=== PATIENT | female | born 1955 | race Caucasian/White ===

== ENCOUNTER 2025-02-01 09:45 | Outpatient (RCR) | payer MEDICARE, OTHER, SELFPAY ==
--- NOTE | 2024-11-05 17:28 | PT.OIE ---
Current Diagnoses Lymphedema, not elsewhere classified (11/05/24) Soft tissue disorder, unspecified (11/05/24) Visit Care Team Role Provider Type Ashkan Wasserman Attending Provider Non-Staff Family Provider Primary Care Provider Referring Provider Specialty: Internal Medicine Address[facility] [place], [address] Email: Physical Therapy Initial Evaluation PT-OP-A Visit Information Start: 11/05/24 09:03 Freq: Status: Active Protocol: Document 11/05/24 09:04 SAK (Rec: 11/05/24 09:43 SAK Laptop) Out-Patient Physical Therapy Visit Information Visit Information Visit Type Initial Evaluation Visit Start Time 09:06 Visit Stop Time 10:30 Visit Number 1 Evaluation Information Evaluation Date 11/05/24 Precautions Precautions diagnosis bursitis right shoulder PT-OP-B Current Condition Start: 11/05/24 09:03 Freq: Status: Active Protocol: Document 11/05/24 09:04 SAK (Rec: 11/05/24 09:43 SAK Laptop) Current Condition History of Current Condition Onset Date 24 yrs Current Complaints lymphedema right UE History of Current Has managed lymphedema (mild) for 25 years, but over Condition past few months bursitis right shoulder and worsening lymphedema with increased heaviness and aching. Wears custom class II compression sleeve and gauntlet from place in [place]; used to only wear with airpline flight. Exacerbation with flying, and heat. More recently wearing most days; helps with ache. Wants evaluation to see PT can help with any further lymphedema treatment. Does not have a pump. Excercises but not specific for lymphedema. right shoulder rehab due to bursitis s/p saw orthopedist and was given exercises, states bursitis improving slowly. Partial mastectomy 1998, lymphedema showed up 1 year later. Prior Treatments and Custom gauntlet and arm sleeve for right UE lymphedema Tests Has not tried pneumatic pump Treatment Goals Patient/Caregiver Decrease lymphedema, be able to self manage Goals Current Functional Impairments (Reported) Functional heavy and achy arm Limitations- ADL's Functional heavy and achyarm Limitations- Recreation/Hobbies PT-OP-C Subjective Start: 11/05/24 09:03 Freq: Status: Active Protocol: Document 11/05/24 09:04 SAK (Rec: 11/05/24 17:25 SAK Laptop) Patient Questionnaires Lymphedema Life Impact Score Lymphedema Score 17 OP-PT Pain Assessment Pain Assessment Grid Paper Pain Yes Assessment Grid Completed Location right shoulder Pain Location forearm and shoulder Details Intensity 3 PT-OP-F Manual Assessment Start: 11/05/24 09:03 Freq: Status: Active Protocol: Document 11/05/24 09:04 SAK (Rec: 11/05/24 17:25 SAK Laptop) Manual Assessments Soft Tissue Assessment Soft Tissue Mobility mild fibrosis and hyperkeratosis forearm, mod in Assessment subaxillary region PT-OP-J Posture/Palpation/Skin Start: 11/05/24 09:03 Freq: Status: Active Protocol: Document 11/05/24 09:04 SAK (Rec: 11/05/24 17:25 SAK Laptop) Palpation Assessment Location right subaxillary Palpation Findings Edema,Soft Tissue Tightness Palpation Details no subaxillary cording Skin Assessment Edema Assessment right UE Edema Type Non-Pitting Edema Appearance Puffy Subjective Edema Tightness Description Incisional Assessment Incision Appearance/ well healed, poor mobility Comments PT-OP-K Range of Motion Start: 11/05/24 09:03 Freq: Status: Active Protocol: Document 11/05/24 09:04 SAK (Rec: 11/05/24 17:25 SAK Laptop) Shoulder Goniometric Range of Motion Shoulder right Shoulder ROM WFL No Shoulder ROM Limitations Shoulder ROM Soft Tissue Tightness,Swelling Limitations PT-OP-N Lymphedema Start: 11/05/24 09:03 Freq: Status: Active Protocol: Document 11/05/24 09:04 SAK (Rec: 11/05/24 09:43 SAK Laptop) Lymphedema Measurements Upper Extremity Circumference Measurements Right Affected MCP 18.7 cm Dorsum of Hand 19.8 cm Wrist 17 cm 5 cm From Wrist 20.8 cm Crease 10 cm From Wrist 23.8 cm Crease 15 cm From Wrist 25.1 cm Crease 20 cm From Wrist 25.3 cm Crease 25 cm From Wrist 25.7 cm Crease 30 cm From Wrist 27.7 cm Crease 35 cm From Wrist 29.5 cm Crease 40 cm From Wrist 31.4 cm Crease Left Unaffected MCP 18.7 cm Dorsum of Hand 19.5 cm Wrist 16.4 cm 5 cm From Wrist 17.6 cm Crease 10 cm From Wrist 20.3 cm Crease 15 cm From Wrist 22.9 cm Crease 20 cm From Wrist 24.9 cm Crease 25 cm From Wrist 25.7 cm Crease 30 cm From Wrist 28.4 cm Crease 35 cm From Wrist 29.9 cm Crease 40 cm From Wrist 29.2 cm Crease Elbow Joint 22.9 cm PT-OP-Q Treatments Start: 11/05/24 09:03 Freq: Status: Active Protocol: Document 11/05/24 09:04 [facility] (Rec: 11/05/24 17:25 SAK Laptop) Lymphedema Treatment Manual Lymphatic Drainage Location for right UE lymphedema Lymphedema Wrapping Body Location right UE Materials patient compression sleeve and gauntlet Sequential Lymphedema Exercises Comments instructed in open book and sidelying shoulder [place] Compression Garment Assessment Compression Garment good fit and containment, different fabric may be more Assessment Details beneficial, will consider Patient Education Lymphedema Pathology instructed Lymphedema instructed Prevention Lymphedema instructed Precautions Compression Garments evaluated patient garment, will discuss further Self Manual instructed and given online resource Lymphatic Drainage Sequential as above Lymphedema Exercises PT-OP-T Assessment and Plan Start: 11/05/24 09:03 Freq: Status: Active Protocol: Document 11/05/24 09:04 SAK (Rec: 11/05/24 09:43 [facility] Laptop) Physical Therapy Assessment Rehab Potential Rehabilitation Good Potential Evaluation Complexity Number of Personal 1-2 Factors/ Comorbidities Number of Body 3 Systems Impaired Clinical Evolving Presentation at Evaluation Impairments Impairments Edema,Soft Tissue Mobility Goals Three Impairment impaired soft tissue mobility subaxillary On Site Services Specialist Goal (LTG) Improve soft tissue mobility of scar and all subaxillary tissue to improve lymphatic flow LTG Duration 02/05/25 Two Impairment lymphedema life impact scale 17% Shelter Goal (LTG) Decrease lymphedema life impact scale to no greater than 5% as measure of improved activity tolerance and quality of life LTG Duration 02/05/25 One Impairment lymphedema exacerbation right UE Short Term Goal (STG Patient will be instructed in all aspects of lymphedema ) self-care to include skin care, elevation, self- massage, self-bandaging/compression options, and lymphedema exercises. STG Duration 12/07/24 On Site Services Specialist Goal (LTG) Decrease patient?s lymphedema to a stable level (no increase or decrease greater than 1 cm over the course of 1 week), patient to be independent with all aspects of self-care for lymphedema, and will obtain appropriate compression garment for lymphedema management in the home. LTG Duration 02/05/25 Assessment Summary Assessment Patient presents to PT with function-limiting exacerbation of lymphedema right UE with increased heaviness and achiness. She has had lymphedema for 24 years, has a custom Class II compression sleeve and gauntlet for right UE with good fit, different fabric may be beneficial so may need to problem-solve compression needs. She is concerned with this exacerbation and hoping PT can help to improve her symptoms and function. Do not have prior measurements from different clinic for comparison of circumferential measurements but right UE has observable lymphedema right with mild fibrosis and hyperkeratosis, no increased warmth or redness, no open wounds. She has significant tightness and edema in her subaxillary region both scar tissue and muscular tissue. Initiated treatment with MLD including patient instruction technique, instruction in ther ex for flexibility upper trunk and subaxillary region. Recommend a sequential pneumatic pump with trunk component may be a good adjunct to her self care in the home. Feel she would benefit highly from PT to address her lymphedema and help her achieve her above goals. POC was discussed with patient and she was in agreement. Physical Therapy Plan Frequency and Duration Frequency of 20 Treatment Plan of Care Start 11/05/24 Date Plan of Care End 02/05/25 Date Therapeutic Interventions Therapeutic Home Exercise Program,Lymphedema Management,Manual Interventions Therapy,Patient/Caregiver Education,Self-Care/Home Management,Soft Tissue Mobilization,Therapeutic Activities,Therapeutic Exercises Modalities Vasopneumatic Devices Next Visit Focus/Plan Next Note Type Treatment Note Next Visit Plan Continue complete decongestive therapy (CDT).
--- NOTE | 2024-11-10 14:30 | PT.OTN ---
Current Diagnoses Lymphedema, not elsewhere classified (11/10/24) Soft tissue disorder, unspecified (11/10/24) Physical Therapy Treatment Note PT-OP-A Visit Information Start: 11/05/24 09:03 Freq: Status: Active Protocol: Document 11/10/24 13:06 SAK (Rec: 11/10/24 13:24 SAK Laptop) Out-Patient Physical Therapy Visit Information Visit Information Visit Type Treatment Note Visit Start Time 13:01 Visit Stop Time 14:26 Visit Number 2 Evaluation Information Evaluation Date 11/05/24 Precautions Precautions diagnosis bursitis right shoulder PT-OP-B Current Condition Start: 11/05/24 09:03 Freq: Status: Active Protocol: Document 11/10/24 13:06 SAK (Rec: 11/10/24 13:24 SAK Laptop) Current Condition History of Current Condition Onset Date 24 yrs Current Complaints lymphedema right UE History of Current Has managed lymphedema (mild) for 25 years, but over Condition past few months bursitis right shoulder and worsening lymphedema with increased heaviness and aching. Wears custom class II compression sleeve and gauntlet from place in [place]; used to only wear with airpline flight. Exacerbation with flying, and heat. More recently wearing most days; helps with ache. Wants evaluation to see PT can help with any further lymphedema treatment. Does not have a pump. Excercises but not specific for lymphedema. right shoulder rehab due to bursitis s/p saw orthopedist and was given exercises, states bursitis improving slowly. Partial mastectomy 1998, lymphedema showed up 1 year later. Prior Treatments and Custom gauntlet and arm sleeve for right UE lymphedema Tests Has not tried pneumatic pump PT-OP-C Subjective Start: 11/05/24 09:03 Freq: Status: Active Protocol: Document 11/10/24 13:06 SAK (Rec: 11/10/24 13:24 SAK Laptop) OP-PT Subjective Patient Comments Patient Comments Doing HEP but reports has to be careful due to shoulder bursitis. Went on a hike before todays appt an is having a good day. Has been doing HEP. OP-PT Pain Assessment Pain Assessment Grid Paper Pain Yes Assessment Grid Completed Location right shoulder Pain Location forearm and shoulder Details Intensity 3 PT-OP-F Manual Assessment Start: 11/05/24 09:03 Freq: Status: Active Protocol: Document 11/05/24 09:04 SAK (Rec: 11/05/24 17:25 SAK Laptop) Manual Assessments Soft Tissue Assessment Soft Tissue Mobility mild fibrosis and hyperkeratosis forearm, mod in Assessment subaxillary region PT-OP-J Posture/Palpation/Skin Start: 11/05/24 09:03 Freq: Status: Active Protocol: Document 11/05/24 09:04 SAK (Rec: 11/05/24 17:25 SAK Laptop) Palpation Assessment Location right subaxillary Palpation Findings Edema,Soft Tissue Tightness Palpation Details no subaxillary cording Skin Assessment Edema Assessment right UE Edema Type Non-Pitting Edema Appearance Puffy Subjective Edema Tightness Description Incisional Assessment Incision Appearance/ well healed, poor mobility Comments PT-OP-K Range of Motion Start: 11/05/24 09:03 Freq: Status: Active Protocol: Document 11/05/24 09:04 SAK (Rec: 11/05/24 17:25 SAK Laptop) Shoulder Goniometric Range of Motion Shoulder right Shoulder ROM WFL No Shoulder ROM Limitations Shoulder ROM Soft Tissue Tightness,Swelling Limitations PT-OP-N Lymphedema Start: 11/05/24 09:03 Freq: Status: Active Protocol: Document 11/10/24 13:06 SAK (Rec: 11/10/24 13:24 SAK Laptop) Lymphedema Measurements Upper Extremity Circumference Measurements Right Affected MCP 19.4 cm Dorsum of Hand 20.6 cm Wrist 17 cm 5 cm From Wrist 19.6 cm Crease 10 cm From Wrist 22.9 cm Crease 15 cm From Wrist 24.7 cm Crease 20 cm From Wrist 25.1 cm Crease 25 cm From Wrist 25.7 cm Crease 30 cm From Wrist 25.7 cm Crease 35 cm From Wrist 28.1 cm Crease 40 cm From Wrist 29.9 cm Crease Elbow Joint 24.4 cm - AFTER COMPRESSION TX: across hand 19.7 cm wrist 16.0 cm 5cm from wrist: 20.7 10 cm from wrist: 23.8 cm 15 cm from wrist: 25.3 cm 20cm from wrist: 25.0 cm elbow: 24.7cm 25cm from wrist: 24.9 cm 30cm from wrist: 26.0 cm 35cm from wrist: 28.9 cm PT-OP-Q Treatments Start: 11/05/24 09:03 Freq: Status: Active Protocol: Document 11/10/24 13:06 SAK (Rec: 11/10/24 14:13 SAK Laptop) Lymphedema Treatment Manual Lymphatic Drainage Location for right UE lymphedema Duration 41 Comments Also soft tissue mobiization to subaxillary cording right UE moderate pressure Lymphedema Wrapping Body Location right UE Materials patient compression sleeve and gauntlet, with Comprilan layered on top 6,8 bandages for trial increase in compression. Sequential Lymphedema Exercises Location review Comments instructed in open book and sidelying shoulder [place] supine shoulder retractions x10 Compression Garment Assessment Compression Garment instructed in option of layering new and old Assessment Details compression garments for increased compression PT-OP-R Modalities Start: 11/05/24 09:03 Freq: Status: Active Protocol: Document 11/10/24 13:06 SAK (Rec: 11/10/24 13:58 SAK Laptop) Compression Pump Treatment Treatment Location R UE Pressure Amount ( 45 mmHg) (mmHG) Inflation Time ( 30 Seconds) Deflation Time ( 10 Seconds) PT-OP-T Assessment and Plan Start: 11/05/24 09:03 Freq: Status: Active Protocol: Document 11/10/24 13:06 SAK (Rec: 11/10/24 13:24 SAK Laptop) Physical Therapy Assessment Goals Three Impairment impaired soft tissue mobility subaxillary Transcriptionist Goal (LTG) Improve soft tissue mobility of scar and all subaxillary tissue to improve lymphatic flow LTG Duration 02/05/25 Two Impairment lymphedema life impact scale 17% Transcriptionist Goal (LTG) Decrease lymphedema life impact scale to no greater than 5% as measure of improved activity tolerance and quality of life LTG Duration 02/05/25 One Impairment lymphedema exacerbation right UE Short Term Goal (STG Patient will be instructed in all aspects of lymphedema ) self-care to include skin care, elevation, self- massage, self-bandaging/compression options, and lymphedema exercises. STG Duration 12/07/24 Transcriptionist Goal (LTG) Decrease patient?s lymphedema to a stable level (no increase or decrease greater than 1 cm over the course of 1 week), patient to be independent with all aspects of self-care for lymphedema, and will obtain appropriate compression garment for lymphedema management in the home. LTG Duration 02/05/25 Assessment Summary Assessment Patient noted to have axillary roding medial upper arm, becomes palpable with overhead shoulder stretch. INitiated soft tissue mobiization to cording with instruction to patient in self mobilization, discussed pathology. Patient educated in importance of neutral posture due to noted significant forward right shoulder positioning and reviewed scapular retraction exercise. Provided MLD for right UE lymphedema and trial pneumatic compression pump to right UE 25 min 45 mm Hg max with good tolerance. Patient instructed in using older compression garments and layering new ones with older one to get more compression especially with increased physical activity. Good compliance to HEP and after review today appears safe and indep. Measurements variable right UE same or decreased. Physical Therapy Plan Frequency and Duration Frequency of 20 Treatment Duration of 12 treatment (weeks) Plan of Care Start 11/05/24 Date Plan of Care End 02/05/25 Date Therapeutic Interventions Therapeutic Home Exercise Program,Lymphedema Management,Manual Interventions Therapy,Patient/Caregiver Education,Self-Care/Home Management,Soft Tissue Mobilization,Therapeutic Activities,Therapeutic Exercises Modalities Vasopneumatic Devices Next Visit Focus/Plan Next Note Type Treatment Note Next Visit Plan Continue complete decongestive therapy (CDT). Review self mobilization of axillary cording. Assess response to trial bandaging over compression glove and sleeve.
--- NOTE | 2024-11-12 16:04 | PT.OTN ---
Current Diagnoses Lymphedema, not elsewhere classified (11/12/24) Soft tissue disorder, unspecified (11/12/24) Physical Therapy Treatment Note PT-OP-A Visit Information Start: 11/05/24 09:03 Freq: Status: Active Protocol: Document 11/12/24 13:00 AB (Rec: 11/12/24 13:24 AB Laptop) Out-Patient Physical Therapy Visit Information Visit Information Visit Type Treatment Note Visit Start Time 13:03 Visit Stop Time 14:31 Visit Number 3 (PN due J12/05/2024) Number of WOOL SAMPLER Visits 1 Evaluation Information Evaluation Date 11/05/24 PT-OP-B Current Condition Start: 11/05/24 09:03 Freq: Status: Active Protocol: Document 11/10/24 13:06 SAK (Rec: 11/10/24 13:24 SAK Laptop) Current Condition History of Current Condition Onset Date 24 yrs Current Complaints lymphedema right UE History of Current Has managed lymphedema (mild) for 25 years, but over Condition past few months bursitis right shoulder and worsening lymphedema with increased heaviness and aching. Wears custom class II compression sleeve and gauntlet from place in [place]; used to only wear with airpline flight. Exacerbation with flying, and heat. More recently wearing most days; helps with ache. Wants evaluation to see PT can help with any further lymphedema treatment. Does not have a pump. Excercises but not specific for lymphedema. right shoulder rehab due to bursitis s/p saw orthopedist and was given exercises, states bursitis improving slowly. Partial mastectomy 1998, lymphedema showed up 1 year later. Prior Treatments and Custom gauntlet and arm sleeve for right UE lymphedema Tests Has not tried pneumatic pump PT-OP-C Subjective Start: 11/05/24 09:03 Freq: Status: Active Protocol: Document 11/12/24 13:00 AB (Rec: 11/12/24 13:24 AB Laptop) OP-PT Subjective Patient Comments Patient Comments Patient reports she didn't try layering her garments ie older over newer, but she just bandaged on top of garments. Patient reports she has been performing the self massage for over a week. PT-OP-F Manual Assessment Start: 11/05/24 09:03 Freq: Status: Active Protocol: Document 11/05/24 09:04 SAK (Rec: 11/05/24 17:25 SAK Laptop) Manual Assessments Soft Tissue Assessment Soft Tissue Mobility mild fibrosis and hyperkeratosis forearm, mod in Assessment subaxillary region PT-OP-J Posture/Palpation/Skin Start: 11/05/24 09:03 Freq: Status: Active Protocol: Document 11/05/24 09:04 SAK (Rec: 11/05/24 17:25 SAK Laptop) Palpation Assessment Location right subaxillary Palpation Findings Edema,Soft Tissue Tightness Palpation Details no subaxillary cording Skin Assessment Edema Assessment right UE Edema Type Non-Pitting Edema Appearance Puffy Subjective Edema Tightness Description Incisional Assessment Incision Appearance/ well healed, poor mobility Comments PT-OP-K Range of Motion Start: 11/05/24 09:03 Freq: Status: Active Protocol: Document 11/05/24 09:04 SAK (Rec: 11/05/24 17:25 SAK Laptop) Shoulder Goniometric Range of Motion Shoulder right Shoulder ROM WFL No Shoulder ROM Limitations Shoulder ROM Soft Tissue Tightness,Swelling Limitations PT-OP-N Lymphedema Start: 11/05/24 09:03 Freq: Status: Active Protocol: Document 11/12/24 13:00 AB (Rec: 11/12/24 13:24 AB Laptop) Lymphedema Measurements Upper Extremity Circumference Measurements Right Affected MCP 18.7 cm Dorsum of Hand 20.1 cm Wrist 16.2 cm 5 cm From Wrist 19.2 cm Crease 10 cm From Wrist 22.5 cm Crease 15 cm From Wrist 25.1 cm Crease 20 cm From Wrist 24.9 cm Crease 25 cm From Wrist 23.7 cm Crease 30 cm From Wrist 24.7 cm Crease 35 cm From Wrist 27.3 cm Crease 40 cm From Wrist 31.2 cm Crease Elbow Joint 24.2 cm - pre compression PT-OP-Q Treatments Start: 11/05/24 09:03 Freq: Status: Active Protocol: Document 11/12/24 13:00 AB (Rec: 11/12/24 13:24 AB Laptop) Lymphedema Treatment Manual Lymphatic Drainage Location for right UE lymphedema Comments Also soft tissue mobiization to subaxillary cording right UE moderate pressure Lymphedema Wrapping Body Location right UE Materials patient compression sleeve and gauntlet, with Comprilan layered on top 6,8 bandages for trial increase in compression. Sequential Lymphedema Exercises Comments instructed in open book and sidelying shoulder [place] Compression Garment Assessment Compression Garment requested patient bring in a second 6 cm bandage for Assessment Details inc bandaging at hand/wrist PT-OP-R Modalities Start: 11/05/24 09:03 Freq: Status: Active Protocol: Document 11/12/24 13:00 AB (Rec: 11/12/24 13:24 AB Laptop) Compression Pump Treatment Treatment Location R UE Pressure Amount ( 45 mmHg) (mmHG) Inflation Time ( 30 Seconds) Deflation Time ( 10 Seconds) Treatment Comments 20 min PT-OP-T Assessment and Plan Start: 11/05/24 09:03 Freq: Status: Active Protocol: Document 11/12/24 13:00 AB (Rec: 11/12/24 13:24 AB Laptop) Physical Therapy Assessment Goals Three Impairment impaired soft tissue mobility subaxillary Store Director Goal (LTG) Improve soft tissue mobility of scar and all subaxillary tissue to improve lymphatic flow LTG Duration 02/05/25 Two Impairment lymphedema life impact scale 17% Custodial Goal (LTG) Decrease lymphedema life impact scale to no greater than 5% as measure of improved activity tolerance and quality of life LTG Duration 02/05/25 One Impairment lymphedema exacerbation right UE Short Term Goal (STG Patient will be instructed in all aspects of lymphedema ) self-care to include skin care, elevation, self- massage, self-bandaging/compression options, and lymphedema exercises. STG Duration 12/07/24 Store Director Goal (LTG) Decrease patient?s lymphedema to a stable level (no increase or decrease greater than 1 cm over the course of 1 week), patient to be independent with all aspects of self-care for lymphedema, and will obtain appropriate compression garment for lymphedema management in the home. LTG Duration 02/05/25 Assessment Summary Assessment All measurements but 15 cm and 40 cm from wrist decreased, measuring pre use of pump this session. Cording persists, patient reports she is performing the massage for cording R UE. Physical Therapy Plan Frequency and Duration Frequency of 20 Treatment Duration of 12 treatment (weeks) Plan of Care Start 11/05/24 Date Plan of Care End 02/05/25 Date Next Visit Focus/Plan Next Note Type Treatment Note Next Visit Plan Continue complete decongestive therapy (CDT). Review self mobilization of axillary cording. Assess response to trial bandaging over compression glove and sleeve.
--- NOTE | 2024-11-16 11:57 | PT.OTN ---
Current Diagnoses Lymphedema, not elsewhere classified (11/16/24) Soft tissue disorder, unspecified (11/16/24) Physical Therapy Treatment Note PT-OP-A Visit Information Start: 11/05/24 09:03 Freq: Status: Active Protocol: Document 11/16/24 10:46 SAK (Rec: 11/16/24 11:21 SAK Laptop) Out-Patient Physical Therapy Visit Information Visit Information Visit Type Treatment Note Visit Start Time 10:45 Visit Number 4 Number of EXEC. CREATIVE DIRECTOR Visits 0 Evaluation Information Evaluation Date 11/05/24 Precautions Precautions diagnosis bursitis right shoulder PT-OP-B Current Condition Start: 11/05/24 09:03 Freq: Status: Active Protocol: Document 11/16/24 10:46 SAK (Rec: 11/16/24 11:21 SAK Laptop) Current Condition History of Current Condition Onset Date 24 yrs Current Complaints lymphedema right UE History of Current Has managed lymphedema (mild) for 25 years, but over Condition past few months bursitis right shoulder and worsening lymphedema with increased heaviness and aching. Wears custom class II compression sleeve and gauntlet from place in [place]; used to only wear with airpline flight. Exacerbation with flying, and heat. More recently wearing most days; helps with ache. Wants evaluation to see PT can help with any further lymphedema treatment. Does not have a pump. Excercises but not specific for lymphedema. right shoulder rehab due to bursitis s/p saw orthopedist and was given exercises, states bursitis improving slowly. Partial mastectomy 1998, lymphedema showed up 1 year later. Prior Treatments and Custom gauntlet and arm sleeve for right UE lymphedema Tests Has not tried pneumatic pump PT-OP-C Subjective Start: 11/05/24 09:03 Freq: Status: Active Protocol: Document 11/16/24 10:46 SAK (Rec: 11/16/24 11:21 SAK Laptop) OP-PT Subjective Patient Comments Patient Comments After 's treatment had to take bandaging off, was too tight. Saturday am arm was a normal size all the way up, wore compression sleeve and glove, by mid to late afternoon felt the swelling was increasing a little, still better. By yesterday had more swelling after pulling weeds, though tried to do as much as she could left UE. PT-OP-F Manual Assessment Start: 11/05/24 09:03 Freq: Status: Active Protocol: Document 11/05/24 09:04 SAK (Rec: 11/05/24 17:25 SAK Laptop) Manual Assessments Soft Tissue Assessment Soft Tissue Mobility mild fibrosis and hyperkeratosis forearm, mod in Assessment subaxillary region PT-OP-J Posture/Palpation/Skin Start: 11/05/24 09:03 Freq: Status: Active Protocol: Document 11/05/24 09:04 SAK (Rec: 11/05/24 17:25 SAK Laptop) Palpation Assessment Location right subaxillary Palpation Findings Edema,Soft Tissue Tightness Palpation Details no subaxillary cording Skin Assessment Edema Assessment right UE Edema Type Non-Pitting Edema Appearance Puffy Subjective Edema Tightness Description Incisional Assessment Incision Appearance/ well healed, poor mobility Comments PT-OP-K Range of Motion Start: 11/05/24 09:03 Freq: Status: Active Protocol: Document 11/05/24 09:04 SAK (Rec: 11/05/24 17:25 SAK Laptop) Shoulder Goniometric Range of Motion Shoulder right Shoulder ROM WFL No Shoulder ROM Limitations Shoulder ROM Soft Tissue Tightness,Swelling Limitations PT-OP-N Lymphedema Start: 11/05/24 09:03 Freq: Status: Active Protocol: Document 11/16/24 10:46 SAK (Rec: 11/16/24 11:21 SAK Laptop) Lymphedema Measurements Upper Extremity Circumference Measurements Right Affected MCP 18.3 cm Dorsum of Hand 19.6 cm Wrist 16.9 cm 5 cm From Wrist 19.6 cm Crease 10 cm From Wrist 22.8 cm Crease 15 cm From Wrist 24.4 cm Crease 20 cm From Wrist 24.7 cm Crease 25 cm From Wrist 24.5 cm Crease 30 cm From Wrist 26.8 cm Crease 35 cm From Wrist 30.7 cm Crease 40 cm From Wrist 32 cm Crease Elbow Joint 24.6 cm - Above measurements precompression PT-OP-Q Treatments Start: 11/05/24 09:03 Freq: Status: Active Protocol: Document 11/16/24 10:46 SAK (Rec: 11/16/24 11:29 SAK Laptop) Lymphedema Treatment Manual Lymphatic Drainage Location for right UE lymphedema Comments Also soft tissue mobiization to subaxillary cording right UE moderate pressure Lymphedema Wrapping Body Location right UE Materials Patient compression sleeve and glove, layered with old garment on top both sleeve and glove. Sequential Lymphedema Exercises Comments continue open book and shoulder circles sidelying PT-OP-R Modalities Start: 11/05/24 09:03 Freq: Status: Active Protocol: Document 11/16/24 10:46 [facility] (Rec: 11/16/24 11:29 [facility] Laptop) Compression Pump Treatment Treatment Location R UE Pressure Amount ( 45 mmHg) (mmHG) Inflation Time ( 30 Seconds) Deflation Time ( 10 Seconds) Treatment Comments 30 min also LTR, bridge, left supine arm circles during pumping for further activation lymphatics PT-OP-T Assessment and Plan Start: 11/05/24 09:03 Freq: Status: Active Protocol: Document 11/16/24 10:46 [facility] (Rec: 11/16/24 11:21 [facility] Laptop) Physical Therapy Assessment Goals Three Impairment impaired soft tissue mobility subaxillary Sports Marketer Goal (LTG) Improve soft tissue mobility of scar and all subaxillary tissue to improve lymphatic flow LTG Duration 02/05/25 Two Impairment lymphedema life impact scale 17% Sports Marketer Goal (LTG) Decrease lymphedema life impact scale to no greater than 5% as measure of improved activity tolerance and quality of life LTG Duration 02/05/25 One Impairment lymphedema exacerbation right UE Short Term Goal (STG Patient will be instructed in all aspects of lymphedema ) self-care to include skin care, elevation, self- massage, self-bandaging/compression options, and lymphedema exercises. STG Duration 12/07/24 [facility] Goal (LTG) Decrease patient?s lymphedema to a stable level (no increase or decrease greater than 1 cm over the course of 1 week), patient to be independent with all aspects of self-care for lymphedema, and will obtain appropriate compression garment for lymphedema management in the home. LTG Duration 02/05/25 Assessment Summary Assessment Hand measurements decreased, most of other measurements increased from last session, though patient reporting good reduction after last session for several days, gradually increasing. Had to remove extra bandaging immediately after last session. Brought extra compression garments, trial layering today. Physical Therapy Plan Frequency and Duration Frequency of 20 Treatment Duration of 12 treatment (weeks) Plan of Care Start 11/05/24 Date Plan of Care End 02/05/25 Date Therapeutic Interventions Therapeutic Home Exercise Program,Lymphedema Management,Manual Interventions Therapy,Patient/Caregiver Education,Self-Care/Home Management,Soft Tissue Mobilization,Therapeutic Activities,Therapeutic Exercises Modalities Vasopneumatic Devices Next Visit Focus/Plan Next Note Type Treatment Note Next Visit Plan Continue complete decongestive therapy (CDT). Assess double layer compression. Trial pneumatic compression pump with Arm-Plus sleeve.
--- NOTE | 2024-12-17 11:55 | PT.OTN ---
Current Diagnoses Lymphedema, not elsewhere classified (12/17/24) Soft tissue disorder, unspecified (12/17/24) Physical Therapy Treatment Note PT-OP-A Visit Information Start: 11/05/24 09:03 Freq: Status: Active Protocol: Document 12/17/24 10:42 SAK (Rec: 12/17/24 11:55 SAK Laptop) Out-Patient Physical Therapy Visit Information Visit Information Visit Type Treatment Note Visit Start Time 10:45 Visit Stop Time 12:15 Visit Number 4 Number of ENGINE COWLING INSTALLER Visits 0 Evaluation Information Evaluation Date 11/05/24 Precautions Precautions diagnosis bursitis right shoulder PT-OP-B Current Condition Start: 11/05/24 09:03 Freq: Status: Active Protocol: Document 12/17/24 10:42 SAK (Rec: 12/17/24 11:55 SAK Laptop) Current Condition History of Current Condition Onset Date 24 yrs Current Complaints lymphedema right UE, subaxillary, and trunk History of Current Has managed lymphedema (mild) for 25 years, but over Condition past few months bursitis right shoulder and worsening lymphedema with increased heaviness and aching. Wears custom class II compression sleeve and gauntlet from place in [place]; used to only wear with airpline flight. Exacerbation with flying, and heat. More recently wearing most days; helps with ache. Wants evaluation to see PT can help with any further lymphedema treatment. Does not have a pump. Excercises but not specific for lymphedema. right shoulder rehab due to bursitis s/p saw orthopedist and was given exercises, states bursitis improving slowly. Partial mastectomy 1998, lymphedema showed up 1 year later. Prior Treatments and Custom gauntlet and arm sleeve for right UE lymphedema Tests Has not tried pneumatic pump PT-OP-C Subjective Start: 11/05/24 09:03 Freq: Status: Active Protocol: Document 12/17/24 10:42 SAK (Rec: 12/17/24 11:55 SAK Laptop) OP-PT Subjective Patient Comments Patient Comments Noticing improvement in shoulder ROM, no improvement in cording despite working on it. Swelling variable depending on activity and heat Hasn't tried layering of compression again due to fingers and hand going numb , continues to wear glove and sleeve 20-30 mm Hg . Getting shoulder injection Saturday. States that for 24 -36 hrs after treatment with pneumatic compression pump last session edema was less, hopeful to be able to get pump for home use. PT-OP-F Manual Assessment Start: 11/05/24 09:03 Freq: Status: Active Protocol: Document 11/05/24 09:04 SAK (Rec: 11/05/24 17:25 SAK Laptop) Manual Assessments Soft Tissue Assessment Soft Tissue Mobility mild fibrosis and hyperkeratosis forearm, mod in Assessment subaxillary region PT-OP-J Posture/Palpation/Skin Start: 11/05/24 09:03 Freq: Status: Active Protocol: Document 11/05/24 09:04 SAK (Rec: 11/05/24 17:25 SAK Laptop) Palpation Assessment Location right subaxillary Palpation Findings Edema,Soft Tissue Tightness Palpation Details no subaxillary cording Skin Assessment Edema Assessment right UE Edema Type Non-Pitting Edema Appearance Puffy Subjective Edema Tightness Description Incisional Assessment Incision Appearance/ well healed, poor mobility Comments PT-OP-K Range of Motion Start: 11/05/24 09:03 Freq: Status: Active Protocol: Document 11/05/24 09:04 SAK (Rec: 11/05/24 17:25 SAK Laptop) Shoulder Goniometric Range of Motion Shoulder right Shoulder ROM WFL No Shoulder ROM Limitations Shoulder ROM Soft Tissue Tightness,Swelling Limitations PT-OP-N Lymphedema Start: 11/05/24 09:03 Freq: Status: Active Protocol: Document 12/17/24 10:42 SAK (Rec: 12/17/24 11:55 SAK Laptop) Lymphedema Measurements Upper Extremity Circumference Measurements Right Affected MCP 18.6 cm Dorsum of Hand 19.8 cm Wrist 16.7 cm 5 cm From Wrist 20.1 cm Crease 10 cm From Wrist 23.1 cm Crease 15 cm From Wrist 24.7 cm Crease 20 cm From Wrist 24.3 cm Crease 25 cm From Wrist 24.4 cm Crease 30 cm From Wrist 26.8 cm Crease 35 cm From Wrist 29.4 cm Crease 40 cm From Wrist 30.8 cm Crease Elbow Joint 24.3 cm - Decrease all measurements after pneumatic compression pump PT-OP-Q Treatments Start: 11/05/24 09:03 Freq: Status: Active Protocol: Document 12/17/24 10:42 SAK (Rec: 12/17/24 11:55 [facility] Laptop) Lymphedema Treatment Manual Lymphatic Drainage Location for right UE lymphedema proximal then Airos pump with ArmPlus garment Comments Also soft tissue mobiization to subaxillary cording right UE moderate pressure Lymphedema Wrapping Body Location right UE Materials Patient compression sleeve and glove,instructed may consider getting legislative analyst compression garment for layering (instead of layering 2 20-30 mm Hg, try layering current 20-30 mm Hg with a 10-15 garment. Sequential Lymphedema Exercises Comments reviewed, patient reports compliant Compression Garment Assessment Compression Garment Good fit current compression, discussed could consider Assessment Details 30-40 mm Hg garment Other Other review technique for self MLD, self massage of axillary cording, discussed compression options. PT-OP-R Modalities Start: 11/05/24 09:03 Freq: Status: Active Protocol: Document 12/17/24 10:42 [facility] (Rec: 12/17/24 11:55 [facility] Laptop) Compression Pump Treatment Treatment Location Right UE and trunk Pressure Amount ( 45 mmHg) (mmHG) Inflation Time ( 30 Seconds) Deflation Time ( 10 Seconds) Treatment Tolerance Good Treatment Comments Arm plus sleeve Airos PT-OP-T Assessment and Plan Start: 11/05/24 09:03 Freq: Status: Active Protocol: Document 12/17/24 10:42 [facility] (Rec: 12/17/24 11:55 [facility] Laptop) Physical Therapy Assessment Goals Three Impairment impaired soft tissue mobility subaxillary Snf Goal (LTG) Improve soft tissue mobility of scar and all subaxillary tissue to improve lymphatic flow 12/17/24: goal progress LTG Duration 02/05/25 Two Impairment lymphedema life impact scale 17% Plant Controller Goal (LTG) Decrease lymphedema life impact scale to no greater than 5% as measure of improved activity tolerance and quality of life 12/17/24: goal progress LTG Duration 02/05/25 One Impairment lymphedema exacerbation right UE Short Term Goal (STG Patient will be instructed in all aspects of lymphedema ) self-care to include skin care, elevation, self- massage, self-bandaging/compression options, and lymphedema exercises. 12/17/24: goal met STG Duration 12/07/24 Plant Controller Goal (LTG) Decrease patient?s lymphedema to a stable level (no increase or decrease greater than 1 cm over the course of 1 week), patient to be independent with all aspects of self-care for lymphedema, and will obtain appropriate compression garment for lymphedema management in the home. LTG Duration 02/05/25 Assessment Summary Assessment Patient has been attending PT for lymphedema management s/p mastectomy since 11/05/24 and has been instructed and highly compliant with 30+ days of elevation, skin care, manual lymphatic drainage, lymphedema exercise, and compression. She was able to manage for past 24 yrs with minimal use of compression or other intervention but has had exacerbation of lymphedema this year and having challenges managing. Despite good compliance to all aspects of self care as instructed and updated including elevation, skin care, self MLD, compression, and lymphedema exercises she has persistent axillary cording from axilla to just superior to her wrist. Despite wearing good fitting class II compression her lymphedema worsens remains hard to manage. We have done 2 trials with Airos Pneumatic pumps; first with regular arm sleeve, second with ArmPlus sleeve. While both were helpful the ArmPlus sleeve provided much better treatment with ability to provide treatment to subaxillary , chest, and shoulder regions with notable decrease in edema and decrease in palpable axillary cording. I highly recommend patient receive a sequential pneumatic pump with trunk component to help her manage her lymphedema in the home and prevent potential complications such as cellulitis. Physical Therapy Plan Frequency and Duration Frequency of 20 Treatment Duration of 12 treatment (weeks) Plan of Care Start 11/05/24 Date Plan of Care End 02/05/25 Date Therapeutic Interventions Therapeutic Home Exercise Program,Lymphedema Management,Manual Interventions Therapy,Patient/Caregiver Education,Self-Care/Home Management,Soft Tissue Mobilization,Therapeutic Activities,Therapeutic Exercises Modalities Vasopneumatic Devices Next Visit Focus/Plan Next Note Type Treatment Note Next Visit Plan Continue CDT, request sequential pneumatic pump with trunk component to help patient self manage her lymphedema in the home.
--- NOTE | 2024-12-17 11:55 | PT.OTN ---
Current Diagnoses Lymphedema, not elsewhere classified (12/17/24) Soft tissue disorder, unspecified (12/17/24) Physical Therapy Treatment Note PT-OP-A Visit Information Start: 11/05/24 09:03 Freq: Status: Active Protocol: Document 12/17/24 10:42 SAK (Rec: 12/17/24 11:55 SAK Laptop) Out-Patient Physical Therapy Visit Information Visit Information Visit Type Treatment Note Visit Start Time 10:45 Visit Stop Time 12:15 Visit Number 4 Number of SYSTEMS INTEGRATION ADVISOR Visits 0 Evaluation Information Evaluation Date 11/05/24 Precautions Precautions diagnosis bursitis right shoulder PT-OP-B Current Condition Start: 11/05/24 09:03 Freq: Status: Active Protocol: Document 12/17/24 10:42 SAK (Rec: 12/17/24 11:55 SAK Laptop) Current Condition History of Current Condition Onset Date 24 yrs Current Complaints lymphedema right UE, subaxillary, and trunk History of Current Has managed lymphedema (mild) for 25 years, but over Condition past few months bursitis right shoulder and worsening lymphedema with increased heaviness and aching. Wears custom class II compression sleeve and gauntlet from place in [place]; used to only wear with airpline flight. Exacerbation with flying, and heat. More recently wearing most days; helps with ache. Wants evaluation to see PT can help with any further lymphedema treatment. Does not have a pump. Excercises but not specific for lymphedema. right shoulder rehab due to bursitis s/p saw orthopedist and was given exercises, states bursitis improving slowly. Partial mastectomy 1998, lymphedema showed up 1 year later. Prior Treatments and Custom gauntlet and arm sleeve for right UE lymphedema Tests Has not tried pneumatic pump PT-OP-C Subjective Start: 11/05/24 09:03 Freq: Status: Active Protocol: Document 12/17/24 10:42 SAK (Rec: 12/17/24 11:55 SAK Laptop) OP-PT Subjective Patient Comments Patient Comments Noticing improvement in shoulder ROM, no improvement in cording despite working on it. Swelling variable depending on activity and heat Hasn't tried layering of compression again due to fingers and hand going numb , continues to wear glove and sleeve 20-30 mm Hg . Getting shoulder injection Saturday. States that for 24 -36 hrs after treatment with pneumatic compression pump last session edema was less, hopeful to be able to get pump for home use. PT-OP-F Manual Assessment Start: 11/05/24 09:03 Freq: Status: Active Protocol: Document 11/05/24 09:04 SAK (Rec: 11/05/24 17:25 SAK Laptop) Manual Assessments Soft Tissue Assessment Soft Tissue Mobility mild fibrosis and hyperkeratosis forearm, mod in Assessment subaxillary region PT-OP-J Posture/Palpation/Skin Start: 11/05/24 09:03 Freq: Status: Active Protocol: Document 11/05/24 09:04 SAK (Rec: 11/05/24 17:25 SAK Laptop) Palpation Assessment Location right subaxillary Palpation Findings Edema,Soft Tissue Tightness Palpation Details no subaxillary cording Skin Assessment Edema Assessment right UE Edema Type Non-Pitting Edema Appearance Puffy Subjective Edema Tightness Description Incisional Assessment Incision Appearance/ well healed, poor mobility Comments PT-OP-K Range of Motion Start: 11/05/24 09:03 Freq: Status: Active Protocol: Document 11/05/24 09:04 SAK (Rec: 11/05/24 17:25 SAK Laptop) Shoulder Goniometric Range of Motion Shoulder right Shoulder ROM WFL No Shoulder ROM Limitations Shoulder ROM Soft Tissue Tightness,Swelling Limitations PT-OP-N Lymphedema Start: 11/05/24 09:03 Freq: Status: Active Protocol: Document 12/17/24 10:42 SAK (Rec: 12/17/24 11:55 SAK Laptop) Lymphedema Measurements Upper Extremity Circumference Measurements Right Affected MCP 18.6 cm Dorsum of Hand 19.8 cm Wrist 16.7 cm 5 cm From Wrist 20.1 cm Crease 10 cm From Wrist 23.1 cm Crease 15 cm From Wrist 24.7 cm Crease 20 cm From Wrist 24.3 cm Crease 25 cm From Wrist 24.4 cm Crease 30 cm From Wrist 26.8 cm Crease 35 cm From Wrist 29.4 cm Crease 40 cm From Wrist 30.8 cm Crease Elbow Joint 24.3 cm - Decrease all measurements after pneumatic compression pump PT-OP-Q Treatments Start: 11/05/24 09:03 Freq: Status: Active Protocol: Document 12/17/24 10:42 SAK (Rec: 12/17/24 11:55 [facility] Laptop) Lymphedema Treatment Manual Lymphatic Drainage Location for right UE lymphedema proximal then Airos pump with ArmPlus garment Comments Also soft tissue mobiization to subaxillary cording right UE moderate pressure Lymphedema Wrapping Body Location right UE Materials Patient compression sleeve and glove,instructed may consider getting bowling ball finisher compression garment for layering (instead of layering 2 20-30 mm Hg, try layering current 20-30 mm Hg with a 10-15 garment. Sequential Lymphedema Exercises Comments reviewed, patient reports compliant Compression Garment Assessment Compression Garment Good fit current compression, discussed could consider Assessment Details 30-40 mm Hg garment Other Other review technique for self MLD, self massage of axillary cording, discussed compression options. PT-OP-R Modalities Start: 11/05/24 09:03 Freq: Status: Active Protocol: Document 12/17/24 10:42 [facility] (Rec: 12/17/24 11:55 [facility] Laptop) Compression Pump Treatment Treatment Location Right UE and trunk Pressure Amount ( 45 mmHg) (mmHG) Inflation Time ( 30 Seconds) Deflation Time ( 10 Seconds) Treatment Tolerance Good Treatment Comments Arm plus sleeve Airos PT-OP-T Assessment and Plan Start: 11/05/24 09:03 Freq: Status: Active Protocol: Document 12/17/24 10:42 [facility] (Rec: 12/17/24 11:55 [facility] Laptop) Physical Therapy Assessment Goals Three Impairment impaired soft tissue mobility subaxillary Senior Care Goal (LTG) Improve soft tissue mobility of scar and all subaxillary tissue to improve lymphatic flow 12/17/24: goal progress LTG Duration 02/05/25 Two Impairment lymphedema life impact scale 17% [employer] Support Goal (LTG) Decrease lymphedema life impact scale to no greater than 5% as measure of improved activity tolerance and quality of life 12/17/24: goal progress LTG Duration 02/05/25 One Impairment lymphedema exacerbation right UE Short Term Goal (STG Patient will be instructed in all aspects of lymphedema ) self-care to include skin care, elevation, self- massage, self-bandaging/compression options, and lymphedema exercises. 12/17/24: goal met STG Duration 12/07/24 [employer] Support Goal (LTG) Decrease patient?s lymphedema to a stable level (no increase or decrease greater than 1 cm over the course of 1 week), patient to be independent with all aspects of self-care for lymphedema, and will obtain appropriate compression garment for lymphedema management in the home. LTG Duration 02/05/25 Assessment Summary Assessment Patient has been attending PT for lymphedema management s/p mastectomy since 11/05/24. She was able to manage for past 24 yrs with minimal use of compression or other intervention but has had exacerbation of lymphedema this year and having challenges managing. Despite good compliance to all aspects of self care as instructed and updated including elevation, skin care, self MLD, compression, and lymphedema exercises she has persistent axillary cording from axilla to just superior to her wrist. Despite wearing good fitting class II compression her lymphedema worsens remains hard to manage. We have done 2 trials with Airos Pneumatic pumps; first with regular arm sleeve, second with ArmPlus sleeve. While both were helpful the ArmPlus sleeve provided much better treatment with ability to provide treatment to subaxillary , chest, and shoulder regions with notable decrease in edema and decrease in palpable axillary cording. I highly recommend patient receive a sequential pneumatic pump with trunk component to help her manage her lymphedema in the home and prevent potential complications such as cellulitis. Physical Therapy Plan Frequency and Duration Frequency of 20 Treatment Duration of 12 treatment (weeks) Plan of Care Start 11/05/24 Date Plan of Care End 02/05/25 Date Therapeutic Interventions Therapeutic Home Exercise Program,Lymphedema Management,Manual Interventions Therapy,Patient/Caregiver Education,Self-Care/Home Management,Soft Tissue Mobilization,Therapeutic Activities,Therapeutic Exercises Modalities Vasopneumatic Devices Next Visit Focus/Plan Next Note Type Treatment Note Next Visit Plan Continue CDT, request sequential pneumatic pump with trunk component to help patient self manage her lymphedema in the home.
--- NOTE | 2024-12-24 14:14 | PT.OTN ---
Current Diagnoses Lymphedema, not elsewhere classified (12/24/24) Soft tissue disorder, unspecified (12/24/24) Physical Therapy Treatment Note PT-OP-A Visit Information Start: 11/05/24 09:03 Freq: Status: Active Protocol: Document 12/24/24 13:03 SAK (Rec: 12/24/24 13:22 SAK Laptop) Out-Patient Physical Therapy Visit Information Visit Information Visit Type Treatment Note Visit Start Time 13:04 Visit Stop Time 14:29 Visit Number 5 Number of GARAGE CONSTRUCTION EQUIPMENT MECHANIC Visits 0 Progress Note Due 12/05/24 PT-OP-B Current Condition Start: 11/05/24 09:03 Freq: Status: Active Protocol: Document 12/17/24 10:42 SAK (Rec: 12/17/24 11:55 SAK Laptop) Current Condition History of Current Condition Onset Date 24 yrs Current Complaints lymphedema right UE, subaxillary, and trunk History of Current Has managed lymphedema (mild) for 25 years, but over Condition past few months bursitis right shoulder and worsening lymphedema with increased heaviness and aching. Wears custom class II compression sleeve and gauntlet from place in [place]; used to only wear with airpline flight. Exacerbation with flying, and heat. More recently wearing most days; helps with ache. Wants evaluation to see PT can help with any further lymphedema treatment. Does not have a pump. Excercises but not specific for lymphedema. right shoulder rehab due to bursitis s/p saw orthopedist and was given exercises, states bursitis improving slowly. Partial mastectomy 1998, lymphedema showed up 1 year later. Prior Treatments and Custom gauntlet and arm sleeve for right UE lymphedema Tests Has not tried pneumatic pump PT-OP-C Subjective Start: 11/05/24 09:03 Freq: Status: Active Protocol: Document 12/24/24 13:03 SAK (Rec: 12/24/24 13:22 SAK Laptop) OP-PT Subjective Patient Comments Patient Comments Got injection right shoulder Malinda, noted when pulling sheets up in bed not painful as usual. Massage therapy yesterday, worked on whole shoulder. Has been cooler outside so noting less swelling. Not seeing any difference in cording, had massage therapise work on it as well. PT-OP-F Manual Assessment Start: 11/05/24 09:03 Freq: Status: Active Protocol: Document 11/05/24 09:04 SAK (Rec: 11/05/24 17:25 SAK Laptop) Manual Assessments Soft Tissue Assessment Soft Tissue Mobility mild fibrosis and hyperkeratosis forearm, mod in Assessment subaxillary region PT-OP-J Posture/Palpation/Skin Start: 11/05/24 09:03 Freq: Status: Active Protocol: Document 11/05/24 09:04 SAK (Rec: 11/05/24 17:25 SAK Laptop) Palpation Assessment Location right subaxillary Palpation Findings Edema,Soft Tissue Tightness Palpation Details no subaxillary cording Skin Assessment Edema Assessment right UE Edema Type Non-Pitting Edema Appearance Puffy Subjective Edema Tightness Description Incisional Assessment Incision Appearance/ well healed, poor mobility Comments PT-OP-K Range of Motion Start: 11/05/24 09:03 Freq: Status: Active Protocol: Document 11/05/24 09:04 SAK (Rec: 11/05/24 17:25 SAK Laptop) Shoulder Goniometric Range of Motion Shoulder right Shoulder ROM WFL No Shoulder ROM Limitations Shoulder ROM Soft Tissue Tightness,Swelling Limitations PT-OP-N Lymphedema Start: 11/05/24 09:03 Freq: Status: Active Protocol: Document 12/24/24 13:03 SAK (Rec: 12/24/24 13:22 SAK Laptop) Lymphedema Measurements Upper Extremity Circumference Measurements Right Affected MCP 18.3 cm Dorsum of Hand 19.5 cm Wrist 16.2 cm 5 cm From Wrist 19.8 cm Crease 10 cm From Wrist 22.9 cm Crease 15 cm From Wrist 24.5 cm Crease 20 cm From Wrist 23.9 cm Crease 25 cm From Wrist 24.9 cm Crease 30 cm From Wrist 26.9 cm Crease 35 cm From Wrist 29.2 cm Crease 40 cm From Wrist 30 cm Crease Elbow Joint 23.9 cm PT-OP-Q Treatments Start: 11/05/24 09:03 Freq: Status: Active Protocol: Document 12/17/24 10:42 SAK (Rec: 12/17/24 11:55 SAK Laptop) Lymphedema Treatment Manual Lymphatic Drainage Location for right UE lymphedema proximal then Airos pump with ArmPlus garment Comments Also soft tissue mobiization to subaxillary cording right UE moderate pressure Lymphedema Wrapping Body Location right UE Materials Patient compression sleeve and glove,instructed may consider getting drama therapist compression garment for layering (instead of layering 2 20-30 mm Hg, try layering current 20-30 mm Hg with a 10-15 garment. Sequential Lymphedema Exercises Comments reviewed, patient reports compliant Compression Garment Assessment Compression Garment Good fit current compression, discussed could consider Assessment Details 30-40 mm Hg garment Other Other review technique for self MLD, self massage of axillary cording, discussed compression options. PT-OP-R Modalities Start: 11/05/24 09:03 Freq: Status: Active Protocol: Document 12/17/24 10:42 [facility] (Rec: 12/17/24 11:55 [facility] Laptop) Compression Pump Treatment Treatment Location Right UE and trunk Pressure Amount ( 45 mmHg) (mmHG) Inflation Time ( 30 Seconds) Deflation Time ( 10 Seconds) Treatment Tolerance Good Treatment Comments Arm plus sleeve Airos PT-OP-T Assessment and Plan Start: 11/05/24 09:03 Freq: Status: Active Protocol: Document 12/24/24 13:03 [facility] (Rec: 12/24/24 13:22 [facility] Laptop) Physical Therapy Assessment Goals Three Impairment impaired soft tissue mobility subaxillary [facility] Goal (LTG) Improve soft tissue mobility of scar and all subaxillary tissue to improve lymphatic flow 12/17/24: goal progress LTG Duration 02/05/25 Two Impairment lymphedema life impact scale 17% [facility] Goal (LTG) Decrease lymphedema life impact scale to no greater than 5% as measure of improved activity tolerance and quality of life 12/17/24: goal progress LTG Duration 02/05/25 One Impairment lymphedema exacerbation right UE Short Term Goal (STG Patient will be instructed in all aspects of lymphedema ) self-care to include skin care, elevation, self- massage, self-bandaging/compression options, and lymphedema exercises. 12/17/24: goal met STG Duration 12/07/24 [facility] Goal (LTG) Decrease patient?s lymphedema to a stable level (no increase or decrease greater than 1 cm over the course of 1 week), patient to be independent with all aspects of self-care for lymphedema, and will obtain appropriate compression garment for lymphedema management in the home. LTG Duration 02/05/25 Assessment Summary Assessment Increased length noted in subaxillary cording, more difficult to find but still present; treated with arm overhead resting on pillows. Trrial use of breast swell spot in subaxillay and inner arm (region of axillary cording) with use of sequential pneumatic pump with good tolerance. Circumferential measurements all decreased except just proximal to elbow was increased today. Physical Therapy Plan Frequency and Duration Frequency of 20 Treatment Duration of 12 treatment (weeks) Plan of Care Start 11/05/24 Date Plan of Care End 02/05/25 Date Therapeutic Interventions Therapeutic Home Exercise Program,Lymphedema Management,Manual Interventions Therapy,Patient/Caregiver Education,Self-Care/Home Management,Soft Tissue Mobilization,Therapeutic Activities,Therapeutic Exercises Modalities Vasopneumatic Devices Next Visit Focus/Plan Next Note Type Treatment Note Next Visit Plan Continue CDT including manual treatment to subaxillary cording
--- NOTE | 2025-01-04 11:35 | PT.OTN ---
Current Diagnoses Lymphedema, not elsewhere classified (01/04/25) Soft tissue disorder, unspecified (01/04/25) Physical Therapy Treatment Note PT-OP-A Visit Information Start: 11/05/24 09:03 Freq: Status: Active Protocol: Document 01/04/25 10:40 SAK (Rec: 01/04/25 11:01 SAK Laptop) Out-Patient Physical Therapy Visit Information Visit Information Visit Type Treatment Note Visit Start Time 10:45 Visit Stop Time 12:15 Visit Number 6 Number of CONTROLS ENGINEER Visits 0 Progress Note Due 12/05/24 Precautions Precautions diagnosis bursitis right shoulder PT-OP-B Current Condition Start: 11/05/24 09:03 Freq: Status: Active Protocol: Document 12/17/24 10:42 SAK (Rec: 12/17/24 11:55 SAK Laptop) Current Condition History of Current Condition Onset Date 24 yrs Current Complaints lymphedema right UE, subaxillary, and trunk History of Current Has managed lymphedema (mild) for 25 years, but over Condition past few months bursitis right shoulder and worsening lymphedema with increased heaviness and aching. Wears custom class II compression sleeve and gauntlet from place in [place]; used to only wear with airpline flight. Exacerbation with flying, and heat. More recently wearing most days; helps with ache. Wants evaluation to see PT can help with any further lymphedema treatment. Does not have a pump. Excercises but not specific for lymphedema. right shoulder rehab due to bursitis s/p saw orthopedist and was given exercises, states bursitis improving slowly. Partial mastectomy 1998, lymphedema showed up 1 year later. Prior Treatments and Custom gauntlet and arm sleeve for right UE lymphedema Tests Has not tried pneumatic pump PT-OP-C Subjective Start: 11/05/24 09:03 Freq: Status: Active Protocol: Document 01/04/25 10:40 SAK (Rec: 01/04/25 11:01 SAK Laptop) OP-PT Subjective Patient Comments Patient Comments Was on trip; automobiles and plane. All day flying home. Wore compression, didn't seem to worsen but not sure. Thinking she needs to get new compression garments, previously obtained at [facility] in [place]. Will call to make appointment. Hopeful to get compression pump soon. PT-OP-F Manual Assessment Start: 11/05/24 09:03 Freq: Status: Active Protocol: Document 11/05/24 09:04 SAK (Rec: 11/05/24 17:25 SAK Laptop) Manual Assessments Soft Tissue Assessment Soft Tissue Mobility mild fibrosis and hyperkeratosis forearm, mod in Assessment subaxillary region PT-OP-J Posture/Palpation/Skin Start: 11/05/24 09:03 Freq: Status: Active Protocol: Document 11/05/24 09:04 SAK (Rec: 11/05/24 17:25 SAK Laptop) Palpation Assessment Location right subaxillary Palpation Findings Edema,Soft Tissue Tightness Palpation Details no subaxillary cording Skin Assessment Edema Assessment right UE Edema Type Non-Pitting Edema Appearance Puffy Subjective Edema Tightness Description Incisional Assessment Incision Appearance/ well healed, poor mobility Comments PT-OP-K Range of Motion Start: 11/05/24 09:03 Freq: Status: Active Protocol: Document 11/05/24 09:04 SAK (Rec: 11/05/24 17:25 SAK Laptop) Shoulder Goniometric Range of Motion Shoulder right Shoulder ROM WFL No Shoulder ROM Limitations Shoulder ROM Soft Tissue Tightness,Swelling Limitations PT-OP-N Lymphedema Start: 11/05/24 09:03 Freq: Status: Active Protocol: Document 01/04/25 10:40 SAK (Rec: 01/04/25 11:01 SAK Laptop) Lymphedema Measurements Upper Extremity Circumference Measurements Right Affected MCP 18.6 cm Dorsum of Hand 19.6 cm Wrist 16.4 cm 5 cm From Wrist 19.8 cm Crease 10 cm From Wrist 23 cm Crease 15 cm From Wrist 24.8 cm Crease 20 cm From Wrist 24.3 cm Crease 25 cm From Wrist 24.9 cm Crease 30 cm From Wrist 26.8 cm Crease 35 cm From Wrist 28.8 cm Crease 40 cm From Wrist 30.5 cm Crease Elbow Joint 24.9 cm - Decrease all measurements after pneumatic compression pump PT-OP-Q Treatments Start: 11/05/24 09:03 Freq: Status: Active Protocol: Document 01/04/25 10:40 SAK (Rec: 01/04/25 11:01 SAK Laptop) Self-Care/Home Management Treatment Education Other Education make appointment for garment measuring/fitting Lymphedema Treatment Manual Lymphatic Drainage Location for R UE lymphedema proximal then Airos pump with ArmPlus garment 45 mmHg Comments Also soft tissue mobiization to subaxillary cording right UE moderate pressure Lymphedema Wrapping Body Location right UE Materials Patient compression sleeve and glove,instructed may consider getting project buyer compression garment for layering (instead of layering 2 20-30 mm Hg, try layering current 20-30 mm Hg with a 10-15 garment. Sequential Lymphedema Exercises Comments reviewed, patient reports compliant Compression Garment Assessment Compression Garment Good fit current compression, discussed could consider Assessment Details 30-40 mm Hg garment PT-OP-R Modalities Start: 11/05/24 09:03 Freq: Status: Active Protocol: Document 12/17/24 10:42 SAK (Rec: 12/17/24 11:55 SAK Laptop) Compression Pump Treatment Treatment Location Right UE and trunk Pressure Amount ( 45 mmHg) (mmHG) Inflation Time ( 30 Seconds) Deflation Time ( 10 Seconds) Treatment Tolerance Good Treatment Comments Arm plus sleeve Airos PT-OP-T Assessment and Plan Start: 11/05/24 09:03 Freq: Status: Active Protocol: Document 01/04/25 10:40 SAK (Rec: 01/04/25 11:01 SAK Laptop) Physical Therapy Assessment Goals Three Impairment impaired soft tissue mobility subaxillary Care Home Goal (LTG) Improve soft tissue mobility of scar and all subaxillary tissue to improve lymphatic flow 12/17/24: goal progress LTG Duration 02/05/25 Two Impairment lymphedema life impact scale 17% [employer] Goal (LTG) Decrease lymphedema life impact scale to no greater than 5% as measure of improved activity tolerance and quality of life 12/17/24: goal progress LTG Duration 02/05/25 One Impairment lymphedema exacerbation right UE Short Term Goal (STG Patient will be instructed in all aspects of lymphedema ) self-care to include skin care, elevation, self- massage, self-bandaging/compression options, and lymphedema exercises. 12/17/24: goal met STG Duration 12/07/24 [employer] T[employer] Shader Goal (LTG) Decrease patient?s lymphedema to a stable level (no increase or decrease greater than 1 cm over the course of 1 week), patient to be independent with all aspects of self-care for lymphedema, and will obtain appropriate compression garment for lymphedema management in the home. LTG Duration 02/05/25 Assessment Summary Assessment Distal circumferential measurements increased, upper arm decreased except for increase subaxillary area. MIld worsening of axillary cording. Continue CDT today . Patient compression pump has been sent but not delievered yet; PT to train in use when delievered. Patient less consistent with massage and exercise during recent trip but wore compression consistent. Trial increase Airos pump to 45 mm Hg Physical Therapy Plan Frequency and Duration Frequency of 20 Treatment Duration of 12 treatment (weeks) Plan of Care Start 11/05/24 Date Plan of Care End 02/05/25 Date Therapeutic Interventions Therapeutic Home Exercise Program,Lymphedema Management,Manual Interventions Therapy,Patient/Caregiver Education,Self-Care/Home Management,Soft Tissue Mobilization,Therapeutic Activities,Therapeutic Exercises Modalities Vasopneumatic Devices Next Visit Focus/Plan Next Note Type Treatment Note Next Visit Plan Instruct in use of sequential pneumatic pump when delievered. Patient to make appointment with [employer] for compression garment measurement and fitting. May consider discharge from PT after compression pump delievered.
--- NOTE | 2025-01-07 12:10 | PT.OTN ---
Current Diagnoses Lymphedema, not elsewhere classified (01/07/25) Soft tissue disorder, unspecified (01/07/25) Physical Therapy Treatment Note PT-OP-A Visit Information Start: 11/05/24 09:03 Freq: Status: Active Protocol: Document 01/07/25 10:47 SAK (Rec: 01/07/25 11:27 SAK Laptop) Out-Patient Physical Therapy Visit Information Visit Information Visit Type Treatment Note Visit Note Reports her doctor has ordered her compression sleeves. Visit Start Time 10:47 Visit Stop Time 12:15 Visit Number 6 Number of UNIFIED COMMUNICATIONS ENGINEER Visits 0 Progress Note Due 02/05/25 Precautions Precautions diagnosis bursitis right shoulder PT-OP-B Current Condition Start: 11/05/24 09:03 Freq: Status: Active Protocol: Document 12/17/24 10:42 SAK (Rec: 12/17/24 11:55 SAK Laptop) Current Condition History of Current Condition Onset Date 24 yrs Current Complaints lymphedema right UE, subaxillary, and trunk History of Current Has managed lymphedema (mild) for 25 years, but over Condition past few months bursitis right shoulder and worsening lymphedema with increased heaviness and aching. Wears custom class II compression sleeve and gauntlet from place in [place]; used to only wear with airpline flight. Exacerbation with flying, and heat. More recently wearing most days; helps with ache. Wants evaluation to see PT can help with any further lymphedema treatment. Does not have a pump. Excercises but not specific for lymphedema. right shoulder rehab due to bursitis s/p saw orthopedist and was given exercises, states bursitis improving slowly. Partial mastectomy 1998, lymphedema showed up 1 year later. Prior Treatments and Custom gauntlet and arm sleeve for right UE lymphedema Tests Has not tried pneumatic pump PT-OP-C Subjective Start: 11/05/24 09:03 Freq: Status: Active Protocol: Document 01/04/25 10:40 SAK (Rec: 01/04/25 11:01 SAK Laptop) OP-PT Subjective Patient Comments Patient Comments Was on trip; automobiles and plane. All day flying home. Wore compression, didn't seem to worsen but not sure. Thinking she needs to get new compression garments, previously obtained at [facility] in [place]. Will call to make appointment. Hopeful to get compression pump soon. PT-OP-F Manual Assessment Start: 11/05/24 09:03 Freq: Status: Active Protocol: Document 11/05/24 09:04 SAK (Rec: 11/05/24 17:25 SAK Laptop) Manual Assessments Soft Tissue Assessment Soft Tissue Mobility mild fibrosis and hyperkeratosis forearm, mod in Assessment subaxillary region PT-OP-J Posture/Palpation/Skin Start: 11/05/24 09:03 Freq: Status: Active Protocol: Document 11/05/24 09:04 SAK (Rec: 11/05/24 17:25 SAK Laptop) Palpation Assessment Location right subaxillary Palpation Findings Edema,Soft Tissue Tightness Palpation Details no subaxillary cording Skin Assessment Edema Assessment right UE Edema Type Non-Pitting Edema Appearance Puffy Subjective Edema Tightness Description Incisional Assessment Incision Appearance/ well healed, poor mobility Comments PT-OP-K Range of Motion Start: 11/05/24 09:03 Freq: Status: Active Protocol: Document 11/05/24 09:04 SAK (Rec: 11/05/24 17:25 SAK Laptop) Shoulder Goniometric Range of Motion Shoulder right Shoulder ROM WFL No Shoulder ROM Limitations Shoulder ROM Soft Tissue Tightness,Swelling Limitations PT-OP-N Lymphedema Start: 11/05/24 09:03 Freq: Status: Active Protocol: Document 01/04/25 10:40 SAK (Rec: 01/04/25 11:01 SAK Laptop) Lymphedema Measurements Upper Extremity Circumference Measurements Right Affected MCP 18.6 cm Dorsum of Hand 19.6 cm Wrist 16.4 cm 5 cm From Wrist 19.8 cm Crease 10 cm From Wrist 23 cm Crease 15 cm From Wrist 24.8 cm Crease 20 cm From Wrist 24.3 cm Crease 25 cm From Wrist 24.9 cm Crease 30 cm From Wrist 26.8 cm Crease 35 cm From Wrist 28.8 cm Crease 40 cm From Wrist 30.5 cm Crease Elbow Joint 24.9 cm - Decrease all measurements after pneumatic compression pump PT-OP-Q Treatments Start: 11/05/24 09:03 Freq: Status: Active Protocol: Document 01/07/25 10:47 SAK (Rec: 01/07/25 12:10 SAK Laptop) Lymphedema Treatment Manual Lymphatic Drainage Location for right UE and subaxillary lymphedema Comments Also soft tissue mobiization to subaxillary cording right UE moderate pressure Lymphedema Wrapping Body Location right UE Materials Patient compression sleeve and glove,instructed may consider getting assembler filters compression garment for layering (instead of layering 2 20-30 mm Hg, try layering current 20-30 mm Hg with a 10-15 garment. Patient Education Other Patient instructed in set up and use of sequential pneumatic pump (Airos 6 chamber) which was delivered this week. After instruction complete patient return demonstration independent. Issued to patient and completed necessary paperwork with patient and faxed to Emy Silva. PT-OP-R Modalities Start: 11/05/24 09:03 Freq: Status: Active Protocol: Document 12/17/24 10:42 SAK (Rec: 12/17/24 11:55 SAK Laptop) Compression Pump Treatment Treatment Location Right UE and trunk Pressure Amount ( 45 mmHg) (mmHG) Inflation Time ( 30 Seconds) Deflation Time ( 10 Seconds) Treatment Tolerance Good Treatment Comments Arm plus sleeve Airos PT-OP-T Assessment and Plan Start: 11/05/24 09:03 Freq: Status: Active Protocol: Document 01/07/25 10:47 SAK (Rec: 01/07/25 11:27 SAK Laptop) Physical Therapy Assessment Goals Three Impairment impaired soft tissue mobility subaxillary Snf Goal (LTG) Improve soft tissue mobility of scar and all subaxillary tissue to improve lymphatic flow 12/17/24: goal progress LTG Duration 02/05/25 Two Impairment lymphedema life impact scale 17% Snf Goal (LTG) Decrease lymphedema life impact scale to no greater than 5% as measure of improved activity tolerance and quality of life 12/17/24: goal progress LTG Duration 02/05/25 One Impairment lymphedema exacerbation right UE Short Term Goal (STG Patient will be instructed in all aspects of lymphedema ) self-care to include skin care, elevation, self- massage, self-bandaging/compression options, and lymphedema exercises. 12/17/24: goal met STG Duration 12/07/24 Snf Goal (LTG) Decrease patient?s lymphedema to a stable level (no increase or decrease greater than 1 cm over the course of 1 week), patient to be independent with all aspects of self-care for lymphedema, and will obtain appropriate compression garment for lymphedema management in the home. LTG Duration 02/05/25 Assessment Summary Assessment Patient instructed in set up and use of Airos 6 chamber sequential pneumatic pump which was delievered this week. After instruction and demonstration patient demonstrated good understanding of use of pump and went home with pump for home use. Has instruction booklet and company contact info for problem solving. Continue manual techniques MLD and deep techniques for axilary cording which persists despite PT as well as patient self massage and exercise. ; hopeful regular use of sequential pneumatic pump will be beneficial for axillary cording. Patient also issued foam chip bag for use under arm with pump for increased soft tissue mobilization. Physical Therapy Plan Frequency and Duration Frequency of 20 Treatment Duration of 12 treatment (weeks) Plan of Care Start 11/05/24 Date Plan of Care End 02/05/25 Date Therapeutic Interventions Therapeutic Home Exercise Program,Lymphedema Management,Manual Interventions Therapy,Patient/Caregiver Education,Self-Care/Home Management,Soft Tissue Mobilization,Therapeutic Activities,Therapeutic Exercises Modalities Vasopneumatic Devices Next Visit Focus/Plan Next Note Type Treatment Note Next Visit Plan Cancel all further appts except last schedule 01/29/25 to assess rsponse to pump as well as fit of new compression garments.
--- NOTE | 2025-02-01 11:09 | PT.OTN ---
Current Diagnoses Lymphedema, not elsewhere classified (02/01/25) Soft tissue disorder, unspecified (02/01/25) Physical Therapy Treatment Note PT-OP-A Visit Information Start: 11/05/24 09:03 Freq: Status: Active Protocol: Document 02/01/25 09:46 SAK (Rec: 02/01/25 10:04 SAK Laptop) Out-Patient Physical Therapy Visit Information Visit Information Visit Type Treatment Note Visit Note Using pump every day. Some days swollen more than others, can't see pattern. Overall improvement. No change in cording. Has been using foam pad issued by PT in axilla. Visit Start Time 10:47 Visit Number 7 Number of TRAINING FACILITATOR Visits 0 Progress Note Due 02/05/25 Precautions Precautions diagnosis bursitis right shoulder PT-OP-B Current Condition Start: 11/05/24 09:03 Freq: Status: Active Protocol: Document 02/01/25 09:46 SAK (Rec: 02/01/25 11:09 SAK Laptop) Current Condition History of Current Condition Onset Date 24 yrs Current Complaints lymphedema right UE, subaxillary, and trunk History of Current Has managed lymphedema (mild) for 25 years, but over Condition past few months bursitis right shoulder and worsening lymphedema with increased heaviness and aching. Wears custom class II compression sleeve and gauntlet from place in [place]; used to only wear with airpline flight. Exacerbation with flying, and heat. More recently wearing most days; helps with ache. Wants evaluation to see PT can help with any further lymphedema treatment. Does not have a pump. Excercises but not specific for lymphedema. right shoulder rehab due to bursitis s/p saw orthopedist and was given exercises, states bursitis improving slowly. Partial mastectomy 1998, lymphedema showed up 1 year later. Prior Treatments and Custom gauntlet and arm sleeve for right UE lymphedema Tests Has not tried pneumatic pump PT-OP-C Subjective Start: 11/05/24 09:03 Freq: Status: Active Protocol: Document 01/04/25 10:40 SAK (Rec: 01/04/25 11:01 SAK Laptop) OP-PT Subjective Patient Comments Patient Comments Was on trip; automobiles and plane. All day flying home. Wore compression, didn't seem to worsen but not sure. Thinking she needs to get new compression garments, previously obtained at [facility] in [place]. Will call to make appointment. Hopeful to get compression pump soon. PT-OP-F Manual Assessment Start: 11/05/24 09:03 Freq: Status: Active Protocol: Document 11/05/24 09:04 SAK (Rec: 11/05/24 17:25 SAK Laptop) Manual Assessments Soft Tissue Assessment Soft Tissue Mobility mild fibrosis and hyperkeratosis forearm, mod in Assessment subaxillary region PT-OP-J Posture/Palpation/Skin Start: 11/05/24 09:03 Freq: Status: Active Protocol: Document 11/05/24 09:04 SAK (Rec: 11/05/24 17:25 SAK Laptop) Palpation Assessment Location right subaxillary Palpation Findings Edema,Soft Tissue Tightness Palpation Details no subaxillary cording Skin Assessment Edema Assessment right UE Edema Type Non-Pitting Edema Appearance Puffy Subjective Edema Tightness Description Incisional Assessment Incision Appearance/ well healed, poor mobility Comments PT-OP-K Range of Motion Start: 11/05/24 09:03 Freq: Status: Active Protocol: Document 11/05/24 09:04 SAK (Rec: 11/05/24 17:25 SAK Laptop) Shoulder Goniometric Range of Motion Shoulder right Shoulder ROM WFL No Shoulder ROM Limitations Shoulder ROM Soft Tissue Tightness,Swelling Limitations PT-OP-N Lymphedema Start: 11/05/24 09:03 Freq: Status: Active Protocol: Document 02/01/25 09:46 SAK (Rec: 02/01/25 10:04 SAK Laptop) Lymphedema Measurements Upper Extremity Circumference Measurements Right Affected MCP 18.8 cm Dorsum of Hand 20 cm Wrist 16.3 cm 5 cm From Wrist 20.3 cm Crease 10 cm From Wrist 23.3 cm Crease 15 cm From Wrist 24.7 cm Crease 20 cm From Wrist 24 cm Crease 25 cm From Wrist 24.8 cm Crease 30 cm From Wrist 26.8 cm Crease 35 cm From Wrist 30.3 cm Crease 40 cm From Wrist 32.7 cm Crease Elbow Joint 24.6 cm PT-OP-Q Treatments Start: 11/05/24 09:03 Freq: Status: Active Protocol: Document 02/01/25 09:46 SAK (Rec: 02/01/25 11:09 SAK Laptop) Lymphedema Treatment Manual Lymphatic Drainage Location for right UE and subaxillary lymphedema Comments Also soft tissue mobiization to subaxillary cording right UE moderate pressure Lymphedema Wrapping Body Location right UE Materials Patient compression sleeve and glove,instructed may consider getting facilities management executive compression garment for layering (instead of layering 2 20-30 mm Hg, try layering current 20-30 mm Hg with a 10-15 garment. she is still awaiting completion of paperwork by her physician so she can do appt at [facility]'s Sequential Lymphedema Exercises Comments reviewed, patient reports compliant Compression Garment Assessment Compression Garment Good fit current compression, discussed could consider Assessment Details 30-40 mm Hg garment Patient Education Other Patient instructed in set up and use of sequential pneumatic pump (Airos 6 chamber) which was delivered this week. After instruction complete patient return demonstration independent. Issued to patient and completed necessary paperwork with patient and faxed to Emy Silva. Other Other review technique for self MLD, self massage of axillary cording, discussed compression options. PT-OP-R Modalities Start: 11/05/24 09:03 Freq: Status: Active Protocol: Document 12/17/24 10:[address] [facility] (Rec: 12/17/24 11:[address] [facility] Laptop) Compression Pump Treatment Treatment Location Right UE and trunk Pressure Amount ( 45 mmHg) (mmHG) Inflation Time ( 30 Seconds) Deflation Time ( 10 Seconds) Treatment Tolerance Good Treatment Comments Arm plus sleeve Airos PT-OP-T Assessment and Plan Start: 11/05/24 09:03 Freq: Status: Active Protocol: Document 02/01/25 09:[address] [facility] (Rec: 02/01/25 11:[address] [facility] Laptop) Physical Therapy Assessment Goals Three Impairment impaired soft tissue mobility subaxillary Half-Way Goal (LTG) Improve soft tissue mobility of scar and all subaxillary tissue to improve lymphatic flow 12/17/24: goal progress 02/01/25: not fully met; subaxillary cording persists LTG Duration 02/05/25 Two Impairment lymphedema life impact scale 17% Half-Way Goal (LTG) Decrease lymphedema life impact scale to no greater than 5% as measure of improved activity tolerance and quality of life 12/17/24: goal progress 02/01/25: goal met LTG Duration 02/05/25 One Impairment lymphedema exacerbation right UE Short Term Goal (STG Patient will be instructed in all aspects of lymphedema ) self-care to include skin care, elevation, self- massage, self-bandaging/compression options, and lymphedema exercises. 12/17/24: goal met STG Duration goal met Half-Way Goal (LTG) Decrease patient?s lymphedema to a stable level (no increase or decrease greater than 1 cm over the course of 1 week), patient to be independent with all aspects of self-care for lymphedema, and will obtain appropriate compression garment for lymphedema management in the home. 02/01/25: goal mostly met; has obtained pneumatic compression pump, is independent witgh all aspects of lymphedema care, has not yet obtained new compression garments due to waiting for physician to complete paperwork. LTG Duration 02/05/25 Assessment Summary Assessment Pt. goals mostly met. Still awaiting paperwork from physician for compression garment appt. Patient demonstrates good understanding of all aspects of self care for lymphedema. Physical Therapy Plan Discharge Physical Therapy Discharge Comments goals mostly met
== END 2025-02-02 08:49 | disposition home or self-care (01) ==
LOC: PHYS 09:45
PROVIDERS: Family Provider Student in an Organized Health Care Education/Training Program; PCP Student in an Organized Health Care Education/Training Program; Referring Provider Student in an Organized Health Care Education/Training Program; Visit Provider Student in an Organized Health Care Education/Training Program
DX: I89.0 Lymphedema, not elsewhere classified (principal); M79.9 Soft tissue disorder, unspecified
CPT/HCPCS: 97016; 97035; 97110; 97140; 97161; 97535